=== PATIENT | female | born 1990 | race Two or more races ===

== ENCOUNTER 2025-02-03 15:41 | Emergency (ER) | payer OTHER ==
[~2025-02-03] VITALS: Ht 172.7 cm; Wt 76.2 kg
[2025-02-03] MEDS ORDERED: ONDANSETRON HCL/PF 4 MG/2 ML VIAL ONE (16:29)
[2025-02-03] MEDS ORDERED: MORPHINE SULFATE INJ 4 MG/ML DISP.SYRIN ONE (16:29)
[2025-02-03] MEDS: ONDANSETRON HCL/PF 4 MG/2 ML VIAL IV ONE (16:34)
[2025-02-03] MEDS: MORPHINE SULFATE INJ 2 MG/ML DISP.SYRIN IV ONE (16:34)
[2025-02-03 16:40] LABS: PLATELET COUNT (AUTO) 237 K/uL (150-450); RED BLOOD CELL COUNT(AUTO) 3.82 MIL/uL (4.0-5.2); RED CELL DISTRIBUTION WIDTH 13.4 % (11.5-15.0); WHITE BLOOD COUNT (AUTO) 5.4 K/uL (4.3-11.0)
[2025-02-03 16:47] LABS: APPEARANCE,URINE CLEAR (CLEAR); BLOOD, URINE NEGATIVE Ery/uL (NEGATIVE); LEUKOCYTE ESTERASE ,URINE NEGATIVE (NEGATIVE); NITRITE, URINE NEGATIVE (NEGATIVE); UGLUCOSE NEGATIVE (NEGATIVE)
[2025-02-03 16:51] LABS: PREGNANCY TEST URINE QUAL NEGATIVE (NEGATIVE)
[2025-02-03 16:54] LABS: CALCIUM, SERUM 8.6 mg/dL (8.5-10.1); CREATININE 0.7 mg/dL (0.6-1.3); SODIUM SERUM 141.0 mmol/L (136-145); UREA NITROGEN, BLOOD 9.0 mg/dL (7-18)
[2025-02-03 16:58] LABS: ASPARTATE AMINOTRANSFERASE 26.0 U/L (15-37); TOTAL PROTEIN, SERUM 7.0 g/dL (6.4-8.2)
[2025-02-03] MEDS ORDERED: DOCU100T2 PO (17:56)
[2025-02-03] MEDS ORDERED: IBUP-1953 PO (17:56)
[2025-02-03] MEDS ORDERED: ACET-73 PO (17:56)
[2025-02-03 18:43] VITALS: BP 115/72; TEMP 98.8; O2SAT 100
== END 2025-02-03 18:44 | disposition home or self-care (01) ==
LOC: ER 15:41
DX: K59.00 Constipation, unspecified (principal); K58.9 Irritable bowel syndrome, unspecified
CPT/HCPCS: 99285; 74176; 96374; 96375; 85025; 80048; 80076; 84703; 81003; 36415; J2270; J2405; J7030